=== PATIENT | male | born 1970 | race Caucasian/White ===

== ENCOUNTER 2021-11-30 18:34 | Observation (INO) | payer OTHER, SELFPAY ==
--- NOTE | ~2021-11-30 | CT_ITS ---
EXAMINATION: CT abdomen pelvis w con DATE: 11/30/2021 20:33 INDICATION: UPPER ABD PAIN,H/O PANCREATITIS TECHNIQUE: Computed tomography (CT) of the abdomen and pelvis was performed with 100 mL Omnipaque-350 intravenous contrast. Automated exposure control and iterative reconstruction technique were employe d. The dose-length product was 796.05 mGy-cm. COMPARISON: 09/12/2007. FINDINGS: Lower thorax: Bibasilar atelectasis/scar. Liver: Mild fatty infiltration. Enlarged. Biliary/Gallbladder: Partially collapsed. No bile duct dilation. Pancreas: Coarse pancreatic tail calcification from prior pancreatitis. Spleen: Normal. Adrenals:No mass. Kidneys: No mass, stone, or hydronephrosis. GI tract: Multiple loops of dilated small bowel in the mid left abdomen, without focal transition poi nt. Normal appendix. Colonic submucosal fat as can be seen with chronic IBD, obesity, chemotherapy tr eatment, and celiac disease. Diverticulosis without diverticulitis. Mesentery/Peritoneum: No ascites, mass, or free air. Retroperitoneum: No mass. Atherosclerotic abdominal aortic and/or arterial calcifications. Pelvis: Distended bladder likely due to outlet compromise from prostatomegaly. Soft Tissues: Moderate right fat-containing inguinal hernia, otherwise soft tissues and body wall are unremarkable. Bones: No acute osseous finding. IMPRESSION: Multiple loops of dilated small bowel in the mid left abdomen, may represent ileus or early obstructi on in the appropriate clinical context. No other acute finding in the abdomen or pelvis. Reviewed, dictated and finalized at location K. IMPRESSION: Multiple loops of dilated small bowel in the mid left abdomen, may represent il eus or early obstruction in the appropriate clinical context. No other acute fi nding in the abdomen or pelvis.
--- NOTE | ~2021-11-30 | XR_ITS ---
EXAM: XR abdomen NG/feed tube insert DATE: 11/30/2021 22:19 HISTORY: NG tube PLACEMENT CHECK . COMPARISON: 09/13/2007. FINDINGS: NG tube tip terminating over the stomach, side port at the GE junction. Clear lung bases. N ormal bowel gas pattern. No organomegaly. No abnormal abdominal calcification. Contrast excretion fro m recent CT. Degenerative thoracolumbar change, otherwise bones and soft tissues normal for age. IMPRESSION: Shallow positioned NG tube, consider 5 cm advancement. Reviewed, dictated and finalized at location K.
[2021-11-30 18:50] VITALS: BP 156/92; PULSE 87; RESP 16; TEMP 36.4; O2SAT 97
--- NOTE | 2021-11-30 18:55 | ED.GENADULT ---
HPI - General Adult General Chief complaint: Abdominal Pain Stated complaint: stomach pain History of Present Illness HPI narrative: Jabari is a 51M with a PMH of kidney stones, HTN, and an episode of severe acute pancreatitis that prestented to the ED with abdominal pain. He has had worsening epigastric pain that radiates to the back and worsening abdominal distension. He had a large BM today. There has been no vomiting. Related Data Home Medications Medication Instructions Recorded Confirmed telmisartan 20 mg tablet 20 mg PO DAILY 04/24/19 11/30/21 Allergies Allergy/AdvReac Type Severity Reaction Status Date / Time codeine AdvReac Unknown Nausea/VOMI Verified 11/30/21 18:56 TING hydrocodone AdvReac Unknown N/V Verified 11/30/21 18:56 Dairy Allergy Unknown Gastrointestinal Uncoded 11/30/21 18:56 Upset Review of Systems Constitutional: Constitutional: Reports no additional constitutional complaints Eyes: Eyes: Reports no additional eye complaints ENT: Reports system reviewed and no additional complaints, except as documented Cardiovascular: Cardiovascular: Reports no additional cardiovascular complaints Respiratory: Respiratory: Reports no additional respiratory complaints Gastrointestinal: Gastrointestinal: Reports as per HPI Genitourinary: Genitourinary: Reports no additional male genitourinary complaints Musculoskeletal: Musculoskeletal: Reports no additional musculoskeletal complaints Integumentary/Breasts: Skin/Breast: Reports system reviewed and no additional complaints, except as docu Neurologic: Reports system reviewed and no additional complaints, except as documented Psychiatric: Psychiatric: Reports no additional psychiatric complaints Endocrine: Endocrine: Reports no additional endocrine complaints Hematologic/Lymphatic: Hematologic/Lymphatic: Reports no additional hematologic/lymphatic complaints Allergic/Immunologic: Allergic/Immunologic: Reports no additional allergic/immunologic complaints [facility] Past Medical History Medical History (Updated 11/30/21 @ 22:31 by Jake Plasencia DO) HTN (hypertension) Hypogonadism Renal stones Testicular hypofunction Ulcerative colitis Surgical History Surgical History H/O lithotripsy Family History Family History Father Malignant neoplasm of prostate Diabetes mellitus Mother Diabetes mellitus Social History Social History Smoking status: Never smoker Second hand tobacco smoke exposure: Yes Alcohol intake: never Substance use: never 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[employer] Gender identity (if verbalized by the patient): Male Spiritual care concerns: No Agree to blood products: Yes Exam Const: General: healthy appearing Nutritional Appearance: well nourished Orientation/consciousness: patient oriented x3 HENMT: Head: normal to inspection Ears: external ears normal General nose exam: Normal external nose present Face and sinus: normal facial exam Eyes: Conjunctivae: conjunctivae normal Pupils: Equal, round and reactive pupils present Neck: Neck: normal visual inspection Chest: Chest palpation & inspection: normal inspection of the chest Resp: Effort & Inspection: normal respiratory effort, not labored and no retractions Cardio: Rate: regular rate Rhythm: regular rhythm Heart sounds: no murmurs GI: Inspection: distended GI Palp: Yes Soft to palpation, Yes Tenderness to palpation present (GI), No Guarding due to palpation present (GI), No Rigid due to palpation and No Rebound tenderness present Auscultation: normal bowel sounds : General: Yes bladder normal to palpation Back/Spine/Pelvis: Back: no CVA tenderness Skin: General skin exam: normal color Neuro: General: patient oriented x3 Cranial ner
[2021-11-30 19:16] LABS: Basophils Absolute Auto 0.05 K/mm3 (0.00-0.10); Basophils Percent Auto 0.6 % (0.0-1.0); Eosinophils Absolute Auto 0.13 K/mm3 (0.02-0.50); Eosinophils Percent Auto 1.5 % (1.0-6.0); Hematocrit 51.4 % (40.0-54.0); Immature Granulocyte Absolute 0.04 K/mm3 (0.00-0.00); Immature Granulocyte Percent A 0.5 % (0.0-0.0); Lymphocytes Absolute Auto 2.01 K/mm3 (1.10-4.50); Lymphocytes Percent Auto 23.9 % (18.0-42.0); Mean Corpuscular HGB Conc 33.1 g/dL (32.0-36.0); Mean Corpuscular Hemoglobin 29.6 pg (27.0-31.0); Mean Corpuscular Volume 89.4 fL (78.0-102.0); Mean Platelet Volume 10.4 fl (8.7-11.0); Monocytes Absolute Auto 0.61 K/mm3 (0.10-0.90); Monocytes Percent Auto 7.2 % (2.0-11.0); Neutrophils Absolute Auto 5.6 K/mm3 (1.7-7.2); Neutrophils Percent Auto 66.3 % (50.0-70.0); Platelet Count Result 190 K/mm3 (150-420); Red Blood Count 5.75 M/mm3 (4.70-6.10); Red Cell Distribution Width 12.8 % (11.6-14.4); White Blood Count 8.4 K/mm3 (4.8-10.8)
[2021-11-30] MEDS: MORPHINE SULFATE (*CRX) 4 MG/ML INJ IV PUSH (19:29)
[2021-11-30] MEDS: LACTATED RINGERS 1,000 ML 999 ML IV CONT (19:29)
[2021-11-30 19:36] LABS: Lactic Acid Reflex 1.6 mmol/L (0.4-2.0)
[2021-11-30 19:45] LABS: Alanine Aminotransferase 76 U/L (16-63); Albumin Level 4.4 g/dL (3.4-5.0); Alkaline Phosphatase 97 U/L (46-116); Amylase 39 U/L (25-115); Anion Gap 10 mmol/L (8-16); Aspartate Amino Transferase 37 U/L (15-37); Bilirubin,Total 0.5 mg/dL (0.00-1.00); Blood Urea Nitrogen 12 mg/dL (7-18); Calcium 9.3 mg/dL (8.5-10.1); Carbon Dioxide 28 mmol/L (21-32); Chloride 104 mmol/L (98-108); Estimated Glomerular Filt Rate 59; Glucose 126 mg/dL (70-99); Lipase 105 U/L (73-393); Osmolality Calculated 295 mOsm/kg (285-295); Potassium 4.1 mmol/L (3.5-5.1); Sodium 142 mmol/L (136-145); Total Protein 7.4 g/dL (6.4-8.2)
[2021-11-30 19:56] LABS: CRP < 0.5 mg/dL (0.0-0.9)
[2021-11-30 20:45] LABS: Add Urine Microscopic? NO; Appearance Urine Clear (Clear); Bilirubin Urine Negative (Negative); Blood Urine Negative (Negative); Color Urine Yellow (Yellow); Glucose Urine UA Negative (Negative); Ketones Urine Negative (Negative); Leukocyte Esterase Ur Negative (Negative); Nitrate Urine Negative (Negative); Protein Urine Negative (Negative); Specific Grav Ur 1.015 (1.010-1.020); Urobilinogen Urine 0.2 mg/dL (0.2-1.0)
[2021-11-30 21:09] VITALS: BP 154/90; PULSE 72; O2SAT 94
[2021-11-30] MEDS: LIDOCAINE HCL 2% PF INJ 5 ML VIAL 2 ML INFILTRATE (21:59)
[2021-11-30] MEDS: LORazepam INJ (*CRX) 2 MG/ML VIAL 0.5 MG IV PUSH (22:00)
[2021-11-30] MEDS: LORazepam INJ (*CRX) 2 MG/ML VIAL 1 MG IV PUSH (22:00)
--- NOTE | 2021-11-30 23:11 | ADMGEN ---
This patient, Hermelindo Botello, was admitted to 2nd Floor Room 203-2. Patient oriented to hospital policies and general routines including ID bracelet, bed and alarms, visiting hours, pain management, procedures, bathroom and other care routines, personal items, smoking policy, room service/diet, and visiting hours. Information on how to activate the Rapid Response Team has been discussed. Patient are encouraged to report perceived risks to care and to ask questions if they do not understand what they are told or what they should do.
[2021-11-30 23:16] VITALS: BMI 32.3
[2021-11-30 23:46] VITALS: BP 121/79; PULSE 75; RESP 17; TEMP 36.4; O2SAT 92
[2021-12-01 07:25] VITALS: BP 165/81; PULSE 87; RESP 18; TEMP 36.7; O2SAT 96
[2021-12-01] MEDS: MAGNESIUM HYDROXIDE SUSP 30 ML UDC PO (08:40)
--- NOTE | 2021-12-01 10:58 | PM.SD2 ---
Same Day Admit/Disch: HPI History of Present Illness Chief complaint: SBO Narrative: Hermelindo Botello is a 51 year old male an is a 51M with a PMH of kidney stones, HTN, and an episode of severe acute pancreatitis that prestented to the ED with abdominal pain. He has had worsening epigastric pain that radiates to the back and worsening abdominal distension. He had a large BM today. There has been no vomiting.CT suggested SBO PMFSH Past Medical History Medical History HTN (hypertension) Hypogonadism Renal stones Testicular hypofunction Ulcerative colitis Surgical History Surgical History H/O lithotripsy Family History Family History Father Malignant neoplasm of prostate Diabetes mellitus Mother Diabetes mellitus Social History Social History Smoking status: Never smoker Second hand tobacco smoke exposure: Yes Alcohol intake: never Substance use: never Additional occupation/education comments: [employer] Gender identity (if verbalized by the patient): Male Spiritual care concerns: No Agree to blood products: Yes Same Day Admit/Disch: Med Pre-admit Medications Home Medications Medication Instructions Recorded Confirmed Type telmisartan 20 mg tablet 20 mg PO DAILY 04/24/19 11/30/21 History sulfasalazine 500 mg tablet See Rx Instructions .Route 11/12/21 11/30/21 Rx .COMPLEX #540 tabs polyethylene glycol 3350 17 17 g PO DAILY #119 grams 12/01/21 Rx gram/dose oral powder (Miralax) Exam Narrative: GENERAL:Well-appearing, well-nourished, and in no acute distress. HEAD:Normocephalic, atraumatic. EYES: PERRLA and EOMI. ENT: Nares clear, no rhinorrhea or epistaxis. Mucous membranes moist. NG tube with no output NECK: Supple. CHEST: Clear to auscultation. No respiratory distress. HEART: Regular rate and rhythm. No murmur heard. Normal peripheral pulses. ABDOMEN: Soft, nontender, nondistended, normal active bowel sounds. EXTREMITIES: Normal range of motion. No edema. SKIN: Warm, dry, no rash. NEURO: No focal deficits. Alert and oriented x3. DS: Data Data Completed and Pending Labs on day of discharge: Labs from last 24 hours 11/30/21 11/30/21 11/30/21 19:07 19:07 19:07 WBC 8.4 RBC 5.75 Hgb 17.0 Hct 51.4 MCV 89.4 MCH 29.6 MCHC 33.1 RDW 12.8 Plt Count 190 MPV 10.4 Immature Gran % (Auto) 0.5 H Neut % (Auto) 66.3 Lymph % (Auto) 23.9 [place] % (Auto) 7.2 Eos % (Auto) 1.5 Baso % (Auto) 0.6 Lymph # (Auto) 2.01 [place] # (Auto) 0.61 Eos # (Auto) 0.13 Baso # (Auto) 0.05 Abs Immat Gran (auto) 0.04 H Absolute Neuts (auto) 5.6 Absolute Nucleated RBC 0.00 Nucleated RBC % 0.0 Sodium 142 Potassium 4.1 Chloride 104 Carbon Dioxide 28 Anion Gap 10 BUN 12 Creatinine 1.28 Estim Creat Clear Calc Not Reportable Estimated GFR 59 Glucose 126 H Calculated Osmolality 295 Lactic Acid 1.6 Calcium 9.3 Total Bilirubin 0.5 AST 37 ALT 76 H Alkaline Phosphatase 97 C-Reactive Protein < 0.5 Total Protein 7.4 Albumin 4.4 Amylase 39 Lipase 105 Urine Color Urine Appearance Urine pH Ur Specific [place] Urine Protein Urine Glucose (UA) Urine Ketones Ur Blood (Man) Urine Nitrate Urine Bilirubin Urine Urobilinogen Ur Leukocyte Esterase 11/30/21 19:07 WBC RBC Hgb Hct MCV MCH MCHC RDW Plt Count MPV Immature Gran % (Auto) Neut % (Auto) Lymph % (Auto) [place] % (Auto) Eos % (Auto) Baso % (Auto) Lymph # (Auto) [place] # (Auto) Eos # (Auto) Baso # (Auto) Abs Immat Gran (auto) Absolute Neuts (auto) Absolute Nucleated RBC Nucleated RBC % Sodium P
--- NOTE | 2021-12-01 13:30 | PC.NURSE ---
All discharge instructions and education reviewed with patient and . Both parties state understanding. IV site removed, tip intact. Dressing applied to site. All belongings gathered together and sent home with patient. Patient denies any questions or concerns at discharge. Left floor ambulatory, left via private vehicle with .
--- NOTE | 2021-12-02 10:01 | PC.NURSE ---
Pt states he received and understood his discharge instructions. Pt also states the nurses were excellent .
== END 2021-12-01 13:30 | disposition home or self-care (01) ==
LOC: CHSED 22:31 → CHS2ND 22:43
PROVIDERS: Admitting Provider Internal Medicine; Emergency Provider Family Medicine; PCP Internal Medicine; Visit Provider Internal Medicine
DX: K56.609 Unspecified intestinal obstruction, unspecified as to partial versus complete obstruction (principal); K51.90 Ulcerative colitis, unspecified, without complications; I10 Essential (primary) hypertension; E29.1 Testicular hypofunction; Z87.442 Personal history of urinary calculi
CPT/HCPCS: 36415; 74177; 80053; 81003; 82150; 83605; 83690; 85025; 86140; 96361; 96374; 96375; 99285; A9270; G0378; J2060; J2270; J7120; Q9967

== ENCOUNTER 2022-01-16 00:59 | Day surgery (SDC) | payer OTHER, SELFPAY ==
[2022-01-05 14:21] VITALS: BMI 31.0
[2022-01-16 06:20] VITALS: BP 138/99; PULSE 79; RESP 18; TEMP 36.4; O2SAT 97
[2022-01-16] MEDS: LACTATED RINGERS 1,000 ML 150 ML IV CONT (06:33)
--- NOTE | 2022-01-16 07:21 | PM.IMHP ---
H&P: HPI History of Present Illness Date/Time: 01/16/22 07:21 Chief Complaint: ulcerative colitis. Narrative: This is a 51-year-old white male patient with longstanding history of ulcerative colitis. Currently on sulfasalazine. He also takes folic acid. Has been 10 years since last colonoscopy. Patient presents today for screening colonoscopy. Patient's current weight appetite bowel movements are normal. He very infrequently will notice bright red blood on stools. He has 1 recent Episode where he thought he had partial small bowel obstruction is spontaneously resolved. patient presents today for colonoscopy. Review of Systems Review of Systems: Review of systems noncontributory. [facility] Past Medical History Medical History (Updated 12/10/21 @ 15:14 by Jacob Momin MD) HTN (hypertension) Hypogonadism Renal stones Testicular hypofunction Ulcerative colitis Surgical History Surgical History H/O lithotripsy Family History Family History Father Malignant neoplasm of prostate Diabetes mellitus Mother Diabetes mellitus Social History Social History Smoking status: Never smoker Second hand tobacco smoke exposure: Yes Alcohol intake: former Substance use: never Substance use type: does not use Living arrangements: with family Additional occupation/education comments: [employer] Gender identity (if verbalized by the patient): Male Spiritual care concerns: No Agree to blood products: Yes Meds Home Medications and Allergies Home Medications Medication Instructions Recorded Confirmed Type telmisartan 20 mg tablet 20 mg PO DAILY 04/24/19 01/05/22 History sulfasalazine 500 mg tablet See Rx Instructions .Route 11/12/21 01/05/22 Rx .COMPLEX #540 tabs folic acid 1 mg tablet 1 mg PO DAILY #90 tabs 12/10/21 01/05/22 Rx sodium,potassium,mag sulfates 17.5 See Rx Instructions PO .COMPLEX 12/12/21 01/05/22 Rx gram-3.13 gram-1.6 gram oral soln #354 mL (Suprep Bowel Prep Kit) Allergies Allergy/AdvReac Type Severity Reaction Status Date / Time codeine AdvReac Unknown Nausea/VOMI Verified 01/16/22 06:18 TING hydrocodone AdvReac Unknown N/V Verified 01/16/22 06:18 Dairy Allergy Unknown Gastrointestinal Uncoded 01/16/22 06:18 Upset Vital Signs Vital Signs - 24 hr 01/16/22 06:20 Temperature 97.6 F Pulse Rate 79 Respiratory Rate 18 Blood Pressure 138/99 H Pulse Oximetry 97 Oxygen Delivery Room Air Exam Narrative: Physical exam reveals patient to be alert. Vital signs stable. HEENT exam is unremarkable. Patient is anicteric. Lungs are clear to auscultation and percussion. Heart is without murmur or extra sounds. Abdomen bowel sounds are present soft nontender with no organomegaly. He does have diastasis recti. Digital external rectal exam is normal. Assessment and Plan Assessment and plan (1) Ulcerative colitis: Code(s): K51.90 - Ulcerative colitis, unspecified, without complications Status: Acute Assessment and Plan: Patient with longstanding history of ulcerative colitis currently felt to be stable. Had recent episode with small-bowel obstruction that resolved spontaneously. Plan is for surveillance colonoscopy at this time. Continue present medications regular diet further recommendations may be given after endoscopy. (2) Rectus diastasis: Code(s): M62.08 - Separation of muscle (nontraumatic), other site Status: Acute
--- NOTE | 2022-01-16 07:29 | WPDANESEPPF ---
Anes - Initial Pre Proc Eval Procedure: Operation Date: 01/16/22 07:30 Proposed Procedures p Colonoscopy - Jacob Momin MD Date/Time: 01/16/22 07:29 Surgeon: Jacob Momin MD Pre Op Diagnosis: ulcerative colitis Patient Data Age: 51 Gender: M Height: 1.75 m Weight: 98.2 kg Last Vital Signs Temp 97.6 F 01/16/22 06:20 Pulse 79 01/16/22 06:20 Resp 18 01/16/22 06:20 BP 138/99 H 01/16/22 06:20 Pulse Ox 97 01/16/22 06:20 O2 Del Method Room Air 01/16/22 06:20 Allergies Allergy/AdvReac Type Severity Reaction Status Date / Time codeine AdvReac Unknown Nausea/VOMI Verified 01/16/22 06:18 TING hydrocodone AdvReac Unknown N/V Verified 01/16/22 06:18 Dairy Allergy Unknown Gastrointestinal Uncoded 01/16/22 06:18 Upset Home Medications Medication Instructions Recorded Confirmed Type telmisartan 20 mg tablet 20 mg PO DAILY 04/24/19 01/05/22 History sulfasalazine 500 mg tablet See Rx Instructions .Route 11/12/21 01/05/22 Rx .COMPLEX #540 tabs folic acid 1 mg tablet 1 mg PO DAILY #90 tabs 12/10/21 01/05/22 Rx sodium,potassium,mag sulfates 17.5 See Rx Instructions PO .COMPLEX 12/12/21 01/05/22 Rx gram-3.13 gram-1.6 gram oral soln #354 mL (Suprep Bowel Prep Kit) Patient hx anesthesia problems: none Family hx anesthesia problems: none Results Review: All pre-operative results and documents have been reviewed as part of the pre-operative evaluation. 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 Informed Consent: The patient's anesthetic plan and its attendant risks and benefits were discussed with the patient/family/POA. Questions were solicited and answers provided to the satisfaction of the patient/family/POA.
[2022-01-16 07:56] VITALS: BP 101/68; PULSE 83; RESP 19; O2SAT 94
[2022-01-16 08:06] VITALS: BP 99/71; PULSE 78; RESP 19; O2SAT 94
[2022-01-16 08:16] VITALS: BP 114/64; PULSE 72; RESP 16; O2SAT 96
== END 2022-01-16 08:28 | disposition home or self-care (01) ==
PROVIDERS: PCP Internal Medicine; Visit Provider Internal Medicine Gastroenterology
PROC: 0DJD8ZZ Inspection of Lower Intestinal Tract, Via Natural or Artificial Opening Endoscopic (ICD-10-PCS; CPT 45378; principal; 2022-01-16 07:30)
DX: K51.90 Ulcerative colitis, unspecified, without complications (principal); D12.2 Benign neoplasm of ascending colon; D12.3 Benign neoplasm of transverse colon; I10 Essential (primary) hypertension; E29.1 Testicular hypofunction; M62.08 Separation of muscle (nontraumatic), other site; Z87.442 Personal history of urinary calculi
CPT/HCPCS: 45385; 45380; 88305; J2704; J7120